=== PATIENT | female | born 1940 | race Caucasian/White ===

== ENCOUNTER 2018-12-03 23:23 | Emergency (ER) | payer MEDICARE, SELFPAY ==
[~2018-12-03] VITALS: Ht 157.5 cm; Wt 84.1 kg
[2018-12-04] MEDS ORDERED: methylPREDNISolone INJ 125 MG/2 ML VIAL (J2930) IV ONE
[2018-12-04] MEDS ORDERED: GI COCKTAIL 50ML BTL(HYOSCYAMINE/MAALOX/LIDOCAINE VISCOUS)(1:3:1) PO ONE
[2018-12-04] MEDS ORDERED: IPRATROPIUM 0.5MG/ALBUTEROL 2.5MG INH SOL UD 3ML (DUONEB)(J7620) NEB ONE
[2018-12-04] MEDS ORDERED: ALBUTEROL SULFATE 2.5 MG/0.5 ML INH NEB SOLN INH ONE
[2018-12-04 00:31] LABS: INR 1.03; PROTHROMBIN TIME 13.2 SECONDS (11.8-14.0)
[2018-12-04 00:32] LABS: BASO % 0.2 % (0.0-1.0); EOS # 0.1 10^3/uL (0.0-0.50); EOS % 1.2 % (0.0-3.0); HEMATOCRIT 50.4 % (36.0-47.0); LYMPH # 1.7 10^3/uL (1.5-4.5); LYMPH % 17.1 % (24.0-44.0); MEAN CORPUSCULAR HEMOGLOBIN 30.9 pg (27.0-33.0); MEAN CORPUSCULAR HGB CONC 33.7 g/dl (32.0-36.5); MEAN CORPUSCULAR VOLUME 91.5 fl (80.0-96.0); MONO # 0.7 10^3/uL (0.0-0.8); MONO % 7.2 % (0.0-5.0); NEUTROPHILS # 7.4 10^3/uL (1.8-7.7); NEUTROPHILS % 73.7 % (36.0-66.0); PLATELET COUNT, AUTOMATED 264 10^3/uL (150-450); RED BLOOD COUNT 5.51 10^6/uL (4.00-5.40)
[2018-12-04 00:32] LABS: PARTIAL THROMBOPLASTIN TIME 29.3 SECONDS (25.0-38.4)
[2018-12-04] MEDS: MORPHINE 2 MG/ML 1ML SYRINGE (J2270) IV PRN ×2 (00:52→01:13)
[2018-12-04] MEDS ORDERED: diphenhydrAMINE INJ 50MG/ML VIAL (J1200) IV STA (00:59)
[2018-12-04] MEDS ORDERED: diphenhydrAMINE INJ 50MG/ML VIAL (J1200) As Ordered ONE (01:01)
[2018-12-04 01:02] LABS: ALBUMIN 3.4 GM/DL (3.2-5.2); ALT/SGPT 34 U/L (12-78); BILIRUBIN,DIRECT 0.1 MG/DL (0.0-0.2); BILIRUBIN,TOTAL 0.3 MG/DL (0.2-1.0); BLOOD UREA NITROGEN 26 MG/DL (7-18); CALCIUM LEVEL 9.7 MG/DL (8.8-10.2); CARBON DIOXIDE LEVEL 36 MEQ/L (21-32); CHLORIDE LEVEL 97 MEQ/L (98-107); CK-MB VALUE MASS < 1.0 NG/ML (<3.6); CPK CREATINE PHOSPHOKINASE 30 U/L (26-192); CREATININE FOR GFR 0.97 MG/DL (0.55-1.30); FREE T4 1.08 NG/DL (0.76-1.46); GLOMERULAR FILTRATION RATE 59.6 (>39); GLUCOSE, FASTING 317 MG/DL (70-100); LIPASE 121 U/L (73-393); MB/CK RELATIVE INDEX 3.33 (< OR =4); NT-PRO BNP 306 PG/ML (<450); POTASSIUM SERUM 4.4 MEQ/L (3.5-5.1); SODIUM LEVEL 139 MEQ/L (136-145); TOTAL PROTEIN 6.9 GM/DL (6.4-8.2); TROPONIN I < 0.02 NG/ML (< 0.10)
[2018-12-04] MEDS ORDERED: ISOVUE-370 76% 100ML VIAL (Q9967) As Ordered ONE (02:10)
--- NOTE | 2018-12-04 03:56 | REPVR ---
EXAM: CT Angiography Chest With Contrast EXAM DATE/TIME: 12/04/18 (2:37am) CLINICAL HISTORY: 77 year old female with chest pain. Possible pulmonary embolism. TECHNIQUE: Imaging protocol: Axial computed tomographic angiography images of the chest with intravenous contrast using CT angiography protocol. Coronal and sagittal reformatted images were created and reviewed. 3D rendering: MIP reconstructed images were created and reviewed. Radiation optimization: All CT scans at this facility use at least one of these dose optimization techniques: automated exposure control; mA and/or kV adjustment per patient size (includes targeted exams where dose is matched to clinical indication); or iterative reconstruction. Contrast material: Isovue 370 Contrast volume: 75 ml Contrast route: IV COMPARISON: Portable CXR of 12/03/18 (11:59pm) FINDINGS: Pulmonary arteries: Normal. No pulmonary emboli. Aorta: Unremarkable. No aortic aneurysm. No aortic dissection. Lungs: No consolidation. No masses. Mild bilateral hypoventilatory changes. Pleural space: Unremarkable. No pneumothorax. No pleural effusions. Heart: Cardiomegaly. No pericardial effusion. Lymph nodes: Unremarkable. No enlarged lymph nodes. Bones/joints: Unremarkable. No acute fracture. Soft tissues: Unremarkable. Upper abdomen: Fatty infiltration of the liver. Small cyst (1 cm diameter) laterally in the lower right hepatic lobe. Slightly nodular left adrenal gland IMPRESSION: No acute findings. No focal infiltrates and no pleural effusions. Cardiomegaly. No filling defects suspicious for pulmonary emboli are seen. There is no CT evidence of aortic dissection nor leakage. No aortic aneurysm is appreciated. Electronically signed by: Renetta Angelo On 12/04/2018 03:56:00 AM
[2018-12-04 05:21] LABS: CK-MB VALUE MASS < 1.0 NG/ML (<3.6); CPK CREATINE PHOSPHOKINASE 29 U/L (26-192); MB/CK RELATIVE INDEX 3.45 (< OR =4); TROPONIN I 0.02 NG/ML (< 0.10)
[2018-12-04 06:13] VITALS: BP 147/66
--- NOTE | 2018-12-04 07:15 | REP ---
Portable chest, 12:02 a.m., single AP view the patient upright: There are no comparisons. There is cardiomegaly. The paul, mediastinum, skeletal structures are unremarkable. There is a nodular density superiorly in the left lung and Upon review of the chest CT performed later this same date. There is a 7 mm nodule posteriorly in the left upper lobe on image 33. This is a category III lung nodule. Probability of malignancy is 1- 2%. Follow-up chest CT in 6 months is recommended. Results are telephoned to the ED physician, Dr. Lang. Electronically Signed by Wiliam Torres MD 12/04/2018 07:07 A
--- NOTE | 2018-12-04 12:43 | ED PDOC ---
Post-Departure Follow-Up certified letter sent to pt re fomral read of cxr for fu ,vianeyg Zach Billingsley MD Dec 04, 2018 12:43
--- NOTE | 2018-12-04 19:12 | ECGEPIP ---
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
--- NOTE | 2018-12-04 19:13 | ECGEPIP ---
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
== END 2018-12-04 06:44 | disposition home or self-care (01) ==
LOC: M ED 23:23
DX: R07.89 Other chest pain (principal); R06.02 Shortness of breath; R91.1 Solitary pulmonary nodule; T40.2X5A Adverse effect of other opioids, initial encounter; E11.9 Type 2 diabetes mellitus without complications; I11.9 Hypertensive heart disease without heart failure; E78.5 Hyperlipidemia, unspecified; I25.10 Atherosclerotic heart disease of native coronary artery without angina pectoris; Z88.0 Allergy status to penicillin; Z88.5 Allergy status to narcotic agent
CPT/HCPCS: 71045; 71275; 80048; 80076; 82550; 82553; 83690; 83880; 84439; 84443; 84484; 85025; 85610; 85730; 93005; 93041; 94640; 94760; 96374; 96375; 99285; J1200; J2270; J2930; Q9967